=== PATIENT | female | born 1960 | race Caucasian/White ===

== ENCOUNTER 2020-12-17 19:59 | Outpatient (CLI) | payer MEDICARE, MEDICAID ==
[2011-06-21 06:43] VITALS: BMI 32.4
== END 2020-12-17 23:59 | disposition home or self-care (01) ==
LOC: D.MAMMO 19:59
PROVIDERS: ATTEND Emergency Medicine
DX: Z12.31 Encounter for screening mammogram for malignant neoplasm of breast (principal)